=== PATIENT | female | born 1960 | race Caucasian/White ===

== ENCOUNTER 2018-07-28 02:30 | Emergency (ER) | payer OTHER ==
[2018-07-28] MEDS ORDERED: ASPIRIN 81 MG TABLET, CHEWABLE PO ONE (03:49)
[2018-07-28 04:34] LABS: ABSOLUTE EOSINOPHILS # (AUTO) 0.1 10^3/uL (0.0-0.6); ABSOLUTE LYMPHOCYTES (AUTO) 1.4 10^3/uL (0.5-4.7); ABSOLUTE MONOCYTES (AUTO) 0.7 10^3/uL (0.1-1.4); ABSOLUTE NEUT (AUTO) 1.4 10^3/uL (1.7-8.2); BASOPHILS % (AUTO) 0.4 % (0-2); EOSINOPHILS % (AUTO) 3.1 % (0-6); HEMOGLOBIN 12.7 g/dL (12.0-15.5); LYMPHOCYTES % (AUTO) 38.8 % (13-45); MEAN CORPUSCULAR HEMOGLOBIN 32.4 pg (27.0-33.4); MEAN CORPUSCULAR HGB CONC 34.5 g/dL (32.0-36.0); MEAN CORPUSCULAR VOLUME 94 fl (80-97); MONOCYTES % (AUTO) 18.5 % (3-13); PLATELET COUNT 181 10^3/uL (150-450); RED BLOOD COUNT 3.94 10^6/uL (3.72-5.28); RED CELL DISTRIBUTION WIDTH 12.9 % (11.5-14.0); SEGMENTED NEUTROPHILS % (AUTO) 39.2 % (42-78); TOTAL CELLS COUNTED % (AUTO) 100 %; WHITE BLOOD COUNT 3.7 10^3/uL (4.0-10.5)
[2018-07-28 04:42] LABS: ALANINE AMINOTRANSFERASE 50 U/L (9-52); ALBUMIN 4.5 g/dL (3.5-5.0); ALKALINE PHOSPHATASE 34 U/L (38-126); ANION GAP 14 (5-19); ASPARTATE AMINO TRANSFERASE 27 U/L (14-36); BILIRUBIN,DIRECT 0.6 mg/dL (0.0-0.4); BILIRUBIN,TOTAL 0.6 mg/dL (0.2-1.3); BLOOD UREA NITROGEN 27 mg/dL (7-20); CARBON DIOXIDE 22 mmol/L (22-30); CHLORIDE 109 mmol/L (98-107); CREATINE KINASE 118 U/L (30-135); GLUCOSE 99 mg/dL (75-110); POTASSIUM 3.5 mmol/L (3.6-5.0); SODIUM 145.4 mmol/L (137-145); TOTAL PROTEIN 7.6 g/dL (6.3-8.2)
[2018-07-28 04:54] LABS: CREATINE KINASE MB 1.52 ng/mL (<4.55)
[2018-07-28 04:56] LABS: TROPONIN I < 0.012 ng/mL
--- NOTE | 2018-07-28 05:46 | ER Document Report ---
ED Blood Pressure Problem - General Chief Complaint: High Blood Pressure Stated Complaint: BLOOD PRESSURE PROBLEMS Time Seen by Provider: 07/28/18 03:31 Mode of Arrival: Ambulatory Information source: Patient Notes: Patient is a 58-year-old female who presents with chief complaint of high blood pressure and "heart beating strong" patient's blood pressure on arrival is 148/ 82. Patient reports that she has no history of hypertension however she reports that at home she had blood pressure reading of 200/110. Patient reports that was at the same time that she felt a strong racing feeling in her heart. Patient denies any chest pain or pressure. Patient denies any nausea, vomiting, diaphoresis or shortness of breath. 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 TRAVEL OUTSIDE OF THE [place] IN LAST 30 DAYS: No - Related Data Allergies/Adverse Reactions: adhesive tape Allergy (Verified 07/28/18 02:44) vancomycin Allergy (Verified 07/28/18 02:44) Iodinated Contrast- Oral and IV Dye Adverse Reaction (Verified 07/28/18 02:44) Past Medical History - General Information source: Patient - Social History Smoking Status: Former Smoker Family History: Reviewed & Not Pertinent Patient has suicidal ideation: No Patient has homicidal ideation: No - Past Medical History Cardiac Medical History: Reports: Hx Congestive Heart Failure Renal/ Medical History: Denies: Hx Peritoneal Dialysis Review of Systems - Review of Systems Respiratory: Cough, Wheezing -: Yes All other systems reviewed and negative Physical Exam - Vital signs Vitals: Temp Pulse Resp BP Pulse Ox 97.9 F 72 18 148/82 H 100 07/28/18 02:42 07/28/18 02:42 07/28/18 02:42 07/28/18 02:42 07/28/18 02:42 - Notes Notes: PHYSICAL EXAMINATION: GENERAL: Well-appearing, well-nourished and in no acute distress. HEAD: Atraumatic, normocephalic. EYES: Pupils equal round and reactive to light, extraocular movements intact, conjunctiva are normal. ENT: Nares patent, oropharynx clear without exudates. Moist mucous membranes. NECK: Normal range of motion, supple without lymphadenopathy LUNGS: Breath sounds clear to auscultation bilaterally and equal. No wheezes rales or rhonchi. HEART: Regular rate and rhythm without murmurs ABDOMEN: Soft, nontender, nondistended abdomen. No guarding, no rebound. No masses appreciated. Female : No CVA tenderness. Musculoskeletal: Normal range of motion, no pitting or edema. No cyanosis. NEUROLOGICAL: Cranial nerves grossly intact. Normal speech, normal gait. Normal sensory, motor exams PSYCH: Normal mood, normal affect. SKIN: Warm, Dry, normal turgor, no rashes or lesions noted. Course - Re-evaluation Re-evalutation: CBC is unremarkable. Comprehensive metabolic panel with potassium 3.5. Patient reports she is on a potassium supplement has not taken in a couple of days. Chest x-ray is normal, EKG is a sinus rhythm, rate 73, QT 412, QTc 454, no ST segment elevations or depressions. Initial cardiac enzymes are negative. Patient has a heart score of 1. Patient declines to stay for repeat troponin. Patient has not had any chest pain. Patient is very confused as to why her blood pressure was elevated at home. She has not had any evidence of elevated blood pressure while in the emergency department. Patient reports that she is going home to [place] on Monday. Encouraged patient to follow-up with her primary care provider on Monday regarding possibility of elevated blood pressure which was not seen here during her visit. Patient given ED return precautions. Patient understands same. - Vital Signs Vital signs: Temp Pulse Resp BP Pulse Ox 97.9 F 72 19 107/56 L 97 07/28/18 02:42 07/28/18 02:42 07/28/18 06:25 07/28/18 06:25 07/28/18 06:25 - Laboratory Result Diagrams: 07/28/18 04:25 07/28/18 04:25 Laboratory results interpreted by me: 07/28/18 07/28/18 04:25 04:25 WBC 3.7 L Seg Neutrophils % 39.2 L Monocytes % 18.5 H Absolute Neutrophils 1.4 L Sodium 145.4 H Potassium 3.5 L Chloride 109 H BUN 27 H Direct Bilirubin 0.6 H Alkaline Phosphatase 34 L Discharge - Discharge Clinical Impression: Normal exam Condition: Stable Disposition: HOME, SELF-CARE Additional Instructions: Your blood pressure today in the emergency department was normal. Your blood work was also unremarkable, your EKG and chest x-ray were normal. Please follow -up with your primary care provider in [place], call them Monday when you get home to set up an appointment. Please return to the emergency department if you develop blood pressure as high as you recorded it at home, you develop chest pain, shortness of breath or any other symptom that is concerning to. We will be happy to reevaluate you at the time. Normal Exam and Workup At this time, your examination and workup show no significant abnormality. No significant abnormal physical findings are noted. All laboratory, EKG, and imaging (x-ray, CT scans, ultrasound) studies that were ordered show no significant abnormality. Although your examination and all studies that were ordered showed no significant abnormal finding, there are no examinations and no studies that are 100% accurate. There is always the possibility that some abnormality could exist and not be detected with physical examination or within the limits and capabilities of laboratory and other studies. You should return or follow up as you were instructed on your visit today for further evaluation if your symptoms do not resolve.
--- NOTE | 2018-07-28 05:46 | EKG REPORT ---
SEVERITY:- BORDERLINE ECG - SINUS RHYTHM BORDERLINE R WAVE PROGRESSION, ANTERIOR LEADS BORDERLINE T ABNORMALITIES, INFERIOR LEADS : Confirmed by: Giacomo Lei MD 28-Jul-2018 05:45:38
[2018-07-28 06:40] VITALS: BP 107/56
--- NOTE | 2018-07-28 08:21 | RADIOLOGY REPORT (SQ) ---
EXAM DESCRIPTION: CHEST SINGLE VIEW COMPLETED DATE/TIME: 07/28/2018 4:44 am REASON FOR STUDY: weakness, rapid heart rate COMPARISON: None. NUMBER OF VIEWS: One view. TECHNIQUE: Single frontal radiographic view of the chest acquired. LIMITATIONS: None. FINDINGS: LUNGS AND PLEURA: No opacities, masses or pneumothorax. No pleural effusion. MEDIASTINUM AND HILAR STRUCTURES: No masses. Contour normal. HEART AND VASCULAR STRUCTURES: Heart normal in size. Normal vasculature. BONES: No acute findings. HARDWARE: Spinal leads project to the midthoracic region. OTHER: No other significant finding. IMPRESSION: NO SIGNIFICANT RADIOGRAPHIC FINDING IN THE CHEST. TECHNICAL DOCUMENTATION: JOB ID: [id number] [employer]- All Rights Reserved Reading location - IP/workstation name: [email or web address]
== END 2018-07-28 06:40 | disposition home or self-care (01) ==
LOC: ER 02:30
DX: Z71.1 Person with feared health complaint in whom no diagnosis is made (principal); R03.0 Elevated blood-pressure reading, without diagnosis of hypertension; Z87.891 Personal history of nicotine dependence
CPT/HCPCS: 36415; 71045; 80053; 82550; 82553; 84484; 85025; 93005; 93010; 99284